=== PATIENT | male | born 1975 | race Caucasian/White ===

== ENCOUNTER 2022-09-03 12:03 | Emergency (ER) | payer SELFPAY ==
[~2022-09-03] VITALS: Ht 167.6 cm; Wt 74.8 kg
[2022-09-03 12:27] VITALS: BP 113/77
--- NOTE | 2022-09-03 12:30 | NUR ---
BACK TO LOBBY. NOTED SUPERFICIAL SMALL SKIN TEARS TO L THUMB, NO BLEEDING
[2022-09-03] MEDS ORDERED: AMOX1TAB8 PO (12:44)
[2022-09-03] MEDS ORDERED: IBUP-2213 PO (12:44)
--- NOTE | 2022-09-03 13:35 | NUR ---
Patient discharged with v/s stable. Written and verbal after care instructions given and explained. Patient verbalized understanding. Ambulatory with steady gait. All questions addressed prior to discharge. Advised to follow up with PMD.
== END 2022-09-03 13:12 | disposition home or self-care (01) ==
LOC: MED 12:03
DX: S61.052A Open bite of left thumb without damage to nail, initial encounter (principal); Z79.2 Long term (current) use of antibiotics; Z79.1 Long term (current) use of non-steroidal anti-inflammatories (NSAID); W54.0XXA Bitten by dog, initial encounter; Y93.89 Activity, other specified; Y92.89 Other specified places as the place of occurrence of the external cause; Y99.8 Other external cause status
CPT/HCPCS: 99283